=== PATIENT | female | born 1985 | race Caucasian/White ===

== ENCOUNTER 2023-03-14 09:45 | Day surgery (SDC) | payer OTHER ==
[2023-03-12 11:02] LABS: HEMATOCRIT 34.6 % (36.0-45.00); HEMOGLOBIN 10.6 g/dL (12.0-15.00); MEAN CELL VOLUME 71.2 fL (80.00-100.00); MEAN CORPUSCULAR HEMOGLOBIN 21.8 pg (27.00-32.0); MEAN CORPUSCULAR HGB CONC 30.6 g/dl (32.0-36.0); PLATELET COUNT 301 K/uL (150-450); RED BLOOD COUNT 4.86 M/uL (4.00-6.00); RED CELL DISTRIBUTION WIDTH 19.9 % (11.5-14.5)
[2023-03-12 11:38] LABS: INR 0.99; PARTIAL THROMBOPLASTIN TIME 27.1 SECONDS (22.0-34.0); PROTHROMBIN TIME 10.4 SECONDS (9.0-11.5)
== END 2023-03-14 19:30 | disposition home or self-care (01) ==
LOC: CIR.AMB 09:45
PROVIDERS: ATTEND Obstetrics & Gynecology
DX: D06.9 Carcinoma in situ of cervix, unspecified (principal); Z20.822 Contact with and (suspected) exposure to COVID-19; B97.7 Papillomavirus as the cause of diseases classified elsewhere

== ENCOUNTER 2025-02-11 09:15 | Inpatient (IN) | payer OTHER ==
[~2025-02-11] VITALS: Ht 154.9 cm; Wt 59.0 kg
[2025-02-11 10:33] VITALS: BP 112/72
[2025-02-11 11:21] LABS: URINE APPEARANCE Clear; URINE BILIRRUBIN Negative (NEGATIVE); URINE BLOOD Negative; URINE COLOR Yellow; URINE GLUCOSE Negative (NEGATIVE); URINE KETONE Negative (NEGATIVE); URINE LEUKOCYTE Trace; URINE NITRATE Negative; URINE PROTEIN Negative (NEGATIVE); URINE UROBILINOGEN 0.2 E.U./dl
[2025-02-11 11:24] LABS: BASO % 0.8 % (0.1-1.2); EOS # 0.07 (0.04-0.54); EOS % 1.1 % (0.7-7.0); LYMPH # 1.79 (1.18-3.74); LYMPH % 28.3 % (19.3-53.1); MEAN PLATELET VOLUME 10.60 fl (9.4-12.4); MONO # 0.41 (0.24-0.82); MONO % 6.5 % (4.7-12.5); NEUT # 3.99 (1.56-6.13); NEUT % 63.1 % (34.0-71.1); RED CELL DISTRIBUTION WIDTH 13.2 % (11.6-14.4)
[2025-02-11 11:27] LABS: URINE BACTERIA 259.1 uL (0.0-1933); URINE EPITHELIAL CELLS 20.2 uL (0.0-38.8); URINE RBC 13.7 uL (0.0-20.8); URINE WBC 10.4 uL (0.0-23.2)
[2025-02-11 11:32] LABS: URINE CAST 0.00 uL (0.0-1.40)
[2025-02-11 11:45] LABS: INR 1.05
[2025-02-11 11:47] LABS: ALT/SGPT 24.0 U/L (12-78); AST/SGOT 10.0 U/L (15-37); BILIRUBIN TOTAL 0.52 mg/dL (0.3-1.2); BUN CREA RATIO 13.0 (7.0-25.0); CREATININE SERUM 0.62 mg/dL (0.55-1.02); GFR 105.56; GLOBULINA 4.3 G/DL (2.4-3.5); GLUCOSE FASTING 97.0 mg/dL (65-100); OSMOLALITY SERUM 285.0 MOSM/KG (275-295)
[2025-02-18] MEDS ORDERED: POVIDONE-IODINE 118 ML BOTT TOP ONE (13:30)
[2025-02-18] MEDS ORDERED: CEFOXITIN SODIUM 2,000 MG VIAL IV ONE (13:30)
[2025-02-18] MEDS ORDERED: KETOROLAC TROMETHAMINE 60 MG VIAL IM STA (15:00)
[2025-02-18] MEDS ORDERED: RINGERS SOLUTION,LACTATED 1,000 ML IV SCH (15:00)
[2025-02-18] MEDS ORDERED: MORPHINE SULFATE 4 MG/ML CARTRIDGE IV PRN (15:15)
[2025-02-18] MEDS ORDERED: MORPHINE SULFATE 4 MG/ML VIAL IV ONE (15:30)
[2025-02-18 16:33] LABS: BASO % 0.3 % (0.1-1.2); EOS # 0.00 (0.04-0.54); EOS % 0.0 % (0.7-7.0); LYMPH # 1.26 (1.18-3.74); LYMPH % 7.7 % (19.3-53.1); MEAN PLATELET VOLUME 10.50 fl (9.4-12.4); MONO # 0.76 (0.24-0.82); MONO % 4.6 % (4.7-12.5); NEUT # 14.33 (1.56-6.13); NEUT % 87.0 % (34.0-71.1); RED CELL DISTRIBUTION WIDTH 13.3 % (11.6-14.4)
[2025-02-18 17:26] VITALS: BP 116/80
[2025-02-19] VITALS: BP 98/65
[2025-02-19 08:34] VITALS: BP 113/76
[2025-02-19] MEDS ORDERED: ACETAMINOPHEN WITH CODEINE 1 UDTAB TABLET PO SCH (09:00)
[2025-02-19] MEDS ORDERED: BISACODYL 10 MG/SUPP.RECT SUPP.RECT RECTAL STA (13:15)
[2025-02-19 16:00] VITALS: BP 109/73
[2025-02-19 20:00] VITALS: BP 98/65
[2025-02-20 02:31] VITALS: BP 103/65
[2025-02-20 05:30] VITALS: BP 113/75; O2SAT 100
[2025-02-20 06:30] VITALS: BP 106/70; O2SAT 100
[2025-02-20 07:59] LABS: BASO % 0.2 % (0.1-1.2); EOS # 0.03 (0.04-0.54); EOS % 0.3 % (0.7-7.0); LYMPH # 1.29 (1.18-3.74); LYMPH % 13.5 % (19.3-53.1); MEAN PLATELET VOLUME 11.40 fl (9.4-12.4); MONO # 0.83 (0.24-0.82); MONO % 8.7 % (4.7-12.5); NEUT # 7.36 (1.56-6.13); NEUT % 77.0 % (34.0-71.1); RED CELL DISTRIBUTION WIDTH 13.9 % (11.6-14.4)
[2025-02-20 08:12] VITALS: BP 108/75; O2SAT 100
[2025-02-20 12:59] VITALS: BP 105/69
[2025-02-20] MEDS ORDERED: CEFOXITIN SODIUM 2,000 MG VIAL IV SCH (13:00)
[2025-02-20 16:00] VITALS: BP 108/69; O2SAT 100
[2025-02-20] MEDS ORDERED: 0.9 % SODIUM CHLORIDE 1,000 ML IV SCH (17:30)
[2025-02-20] MEDS ORDERED: FAMOTIDINE/PF 20 MG in 0.9 % SODIUM CHLORIDE 100 ML IV SCH (21:00)
[2025-02-20 23:34] LABS: BASO % 0.2 % (0.1-1.2); EOS # 0.04 (0.04-0.54); EOS % 0.5 % (0.7-7.0); LYMPH # 1.62 (1.18-3.74); LYMPH % 19.2 % (19.3-53.1); MEAN PLATELET VOLUME 11.10 fl (9.4-12.4); MONO # 0.84 (0.24-0.82); MONO % 10.0 % (4.7-12.5); NEUT # 5.88 (1.56-6.13); NEUT % 69.7 % (34.0-71.1); RED CELL DISTRIBUTION WIDTH 13.9 % (11.6-14.4)
[2025-02-20 23:46] LABS: ALT/SGPT 13.0 U/L (12-78); AST/SGOT 17.0 U/L (15-37); BILIRUBIN TOTAL 0.84 mg/dL (0.3-1.2); BUN CREA RATIO 6.0 (7.0-25.0); CREATININE SERUM 0.72 mg/dL (0.55-1.02); GFR 88.83; GLOBULINA 2.8 G/DL (2.4-3.5); GLUCOSE FASTING 90.0 mg/dL (65-100); OSMOLALITY SERUM 278.0 MOSM/KG (275-295)
[2025-02-20 23:54] LABS: INR 1.02
[2025-02-21 00:59] VITALS: BP 92/61; O2SAT 97
[2025-02-21 08:45] VITALS: BP 111/79; O2SAT 100
[2025-02-21 14:48] VITALS: BP 112/74; O2SAT 97
[2025-02-21 15:20] LABS: BASO % 0.5 % (0.1-1.2); EOS # 0.12 (0.04-0.54); EOS % 1.5 % (0.7-7.0); LYMPH # 1.41 (1.18-3.74); LYMPH % 18.1 % (19.3-53.1); MEAN PLATELET VOLUME 11.10 fl (9.4-12.4); MONO # 0.77 (0.24-0.82); MONO % 9.9 % (4.7-12.5); NEUT # 5.41 (1.56-6.13); NEUT % 69.6 % (34.0-71.1); RED CELL DISTRIBUTION WIDTH 13.7 % (11.6-14.4)
[2025-02-21 15:53] LABS: BASO % 0.5 % (0.1-1.2); EOS # 0.04 (0.04-0.54); EOS % 0.5 % (0.7-7.0); LYMPH # 0.99 (1.18-3.74); LYMPH % 12.5 % (19.3-53.1); MEAN PLATELET VOLUME 11.00 fl (9.4-12.4); MONO # 0.62 (0.24-0.82); MONO % 7.8 % (4.7-12.5); NEUT # 6.19 (1.56-6.13); NEUT % 78.4 % (34.0-71.1); RED CELL DISTRIBUTION WIDTH 13.7 % (11.6-14.4)
[2025-02-21] MEDS ORDERED: ACETAMINOPHEN WITH CODEINE 1 UDTAB TABLET PO SCH (21:15)
[2025-02-22] VITALS: BP 99/63
[2025-02-22 05:00] VITALS: BP 113/77
[2025-02-22 08:48] VITALS: BP 121/81; O2SAT 100
[2025-02-22 15:48] VITALS: BP 107/69
[2025-02-23 00:15] VITALS: BP 104/71
[2025-02-23 08:12] VITALS: BP 128/84; O2SAT 100
[2025-02-23 09:38] LABS: BASO % 0.5 % (0.1-1.2); EOS # 0.26 (0.04-0.54); EOS % 2.8 % (0.7-7.0); LYMPH # 1.45 (1.18-3.74); LYMPH % 15.6 % (19.3-53.1); MEAN PLATELET VOLUME 10.20 fl (9.4-12.4); MONO # 0.76 (0.24-0.82); MONO % 8.2 % (4.7-12.5); NEUT # 6.73 (1.56-6.13); NEUT % 72.7 % (34.0-71.1); RED CELL DISTRIBUTION WIDTH 14.0 % (11.6-14.4)
[2025-02-23 13:05] VITALS: BP 124/80
[2025-02-23] MEDS ORDERED: MIDAZOLAM HCL 2 MG/2 ML VIAL IV PUSH ONE (17:00)
[2025-02-23] MEDS ORDERED: fentaNYL CITRATE 50 MCG/ML AMPUL IV PUSH ONE ×2 (17:00→17:30)
[2025-02-23 20:53] VITALS: BP 112/74
[2025-02-24 01:09] VITALS: BP 104/70
[2025-02-24 05:43] VITALS: BP 121/84
[2025-02-24 08:51] VITALS: BP 113/76
[2025-02-24] MEDS ORDERED: AMOXICILLIN/POTASSIUM CLAV 500 MG TABLET PO SCH (09:00)
[2025-02-24 16:58] VITALS: BP 115/73
[2025-02-25] VITALS: BP 119/77
[2025-02-25 09:21] VITALS: BP 120/79
[2025-02-25 17:54] VITALS: BP 128/80
[2025-02-25] MEDS ORDERED: LACTOBACILLUS ACIDOPHILUS 1 CAP CAP PO SCH (20:49)
[2025-02-26 00:53] VITALS: BP 108/73
[2025-02-26 06:54] LABS: BASO % 0.3 % (0.1-1.2); EOS # 0.25 (0.04-0.54); EOS % 2.6 % (0.7-7.0); LYMPH # 1.75 (1.18-3.74); LYMPH % 18.0 % (19.3-53.1); MEAN PLATELET VOLUME 10.00 fl (9.4-12.4); MONO # 0.82 (0.24-0.82); MONO % 8.5 % (4.7-12.5); NEUT # 6.81 (1.56-6.13); NEUT % 70.2 % (34.0-71.1); RED CELL DISTRIBUTION WIDTH 13.8 % (11.6-14.4)
[2025-02-26 07:34] LABS: ALT/SGPT 208.0 U/L (12-78); AST/SGOT 175.0 U/L (15-37); BILIRUBIN TOTAL 1.14 mg/dL (0.3-1.2); BUN CREA RATIO 17.0 (7.0-25.0); CREATININE SERUM 0.53 mg/dL (0.55-1.02); GFR 126.51; GLOBULINA 3.8 G/DL (2.4-3.5); GLUCOSE FASTING 83.0 mg/dL (65-100); OSMOLALITY SERUM 274.0 MOSM/KG (275-295)
[2025-02-26 08:00] VITALS: BP 120/78
[2025-02-26 20:04] VITALS: BP 120/82
[2025-02-27 00:46] VITALS: BP 115/74
[2025-02-27 04:30] VITALS: BP 118/78
[2025-02-27 08:00] VITALS: BP 121/84
[2025-02-27 18:59] VITALS: BP 122/81
[2025-02-28 00:12] VITALS: BP 115/73
[2025-02-28 04:30] VITALS: BP 112/75
[2025-02-28 08:00] VITALS: BP 116/77
[2025-02-28 17:21] VITALS: BP 127/80
[2025-03-01] VITALS: BP 110/77
[2025-03-01 07:24] LABS: ALT/SGPT 112.0 U/L (12-78); AST/SGOT 33.0 U/L (15-37); BILIRUBIN TOTAL 0.83 mg/dL (0.3-1.2); BUN CREA RATIO 17.0 (7.0-25.0); CREATININE SERUM 0.54 mg/dL (0.55-1.02); GFR 123.81; GLOBULINA 3.4 G/DL (2.4-3.5); GLUCOSE FASTING 89.0 mg/dL (65-100); OSMOLALITY SERUM 278.0 MOSM/KG (275-295)
[2025-03-01 07:26] LABS: BASO % 1.0 % (0.1-1.2); EOS # 0.26 (0.04-0.54); EOS % 3.1 % (0.7-7.0); LYMPH # 1.93 (1.18-3.74); LYMPH % 23.3 % (19.3-53.1); MEAN PLATELET VOLUME 9.60 fl (9.4-12.4); MONO # 0.61 (0.24-0.82); MONO % 7.4 % (4.7-12.5); NEUT # 5.37 (1.56-6.13); NEUT % 64.8 % (34.0-71.1); RED CELL DISTRIBUTION WIDTH 13.8 % (11.6-14.4)
[2025-03-01 07:30] LABS: ERYTHROCYTE SEDIMENTATION RATE 66 mm/hr (0-20)
[2025-03-01 08:00] VITALS: BP 113/73
[2025-03-01 16:47] VITALS: BP 113/66
[2025-03-02] VITALS: BP 106/65
[2025-03-02 09:29] VITALS: BP 123/75
[2025-03-02 16:56] VITALS: BP 116/78
[2025-03-02] MEDS ORDERED: CEFAZOLIN SODIUM 1,000 MG in 0.9 % SODIUM CHLORIDE 50 ML IV SCH (17:00)
[2025-03-03 00:24] VITALS: BP 121/79
[2025-03-03 03:57] VITALS: BP 118/67
[2025-03-03 08:54] VITALS: BP 124/81
[2025-03-03 16:00] VITALS: BP 110/77
[2025-03-03 20:00] VITALS: BP 108/76
[2025-03-04] VITALS: BP 106/70
[2025-03-04 05:30] VITALS: BP 140/70
[2025-03-04 07:54] VITALS: BP 107/73
[2025-03-04 13:10] VITALS: BP 112/68
[2025-03-05 02:12] VITALS: BP 120/75
[2025-03-05 06:40] VITALS: BP 107/70
[2025-03-05 07:31] LABS: BASO % 0.8 % (0.1-1.2); EOS # 0.18 (0.04-0.54); EOS % 2.2 % (0.7-7.0); LYMPH # 1.74 (1.18-3.74); LYMPH % 20.8 % (19.3-53.1); MEAN PLATELET VOLUME 9.90 fl (9.4-12.4); MONO # 0.62 (0.24-0.82); MONO % 7.4 % (4.7-12.5); NEUT # 5.73 (1.56-6.13); NEUT % 68.6 % (34.0-71.1); RED CELL DISTRIBUTION WIDTH 13.2 % (11.6-14.4)
[2025-03-05 08:00] LABS: BUN CREA RATIO 14.0 (7.0-25.0); CREATININE SERUM 0.42 mg/dL (0.55-1.02); GFR 165.46; GLUCOSE FASTING 86.0 mg/dL (65-100); OSMOLALITY SERUM 278.0 MOSM/KG (275-295)
[2025-03-05 08:27] VITALS: BP 115/74
[2025-03-05 16:33] VITALS: BP 114/78
[2025-03-05 19:00] VITALS: BP 115/65
[2025-03-06 01:42] VITALS: BP 117/77
[2025-03-06 06:08] VITALS: BP 114/78
[2025-03-06 08:48] VITALS: BP 106/71
[2025-03-06 15:26] VITALS: BP 116/76
[2025-03-06] MEDS ORDERED: CEFAZOLIN SODIUM 1,000 MG VIAL ONE (15:57)
== END 2025-03-06 18:38 | disposition home or self-care (01) | DRG 742 ==
LOC: SURH 02-18 07:00 → O/R 02-18 10:04 → OB/GYN 02-18 15:04
PROVIDERS: Internal Medicine; ADMIT Obstetrics & Gynecology; ATTEND Obstetrics & Gynecology
PROC: 0UT90ZZ Resection of Uterus, Open Approach (ICD-10-PCS; 2025-02-18)
PROC: 0UT70ZZ Resection of Bilateral Fallopian Tubes, Open Approach (ICD-10-PCS; principal; 2025-02-18 07:00)
PROC: 30233N1 Transfusion of Nonautologous Red Blood Cells into Peripheral Vein, Percutaneous Approach (ICD-10-PCS; 2025-02-20)
PROC: B42CZZZ Computerized Tomography (CT Scan) of Pelvic Arteries (ICD-10-PCS; 2025-02-20)
PROC: B42CYZZ Computerized Tomography (CT Scan) of Pelvic Arteries using Other Contrast (ICD-10-PCS; 2025-02-20)
PROC: 0W9F3ZZ Drainage of Abdominal Wall, Percutaneous Approach (ICD-10-PCS; 2025-02-23)
PROC: BW21YZZ Computerized Tomography (CT Scan) of Abdomen and Pelvis using Other Contrast (ICD-10-PCS; 2025-02-27)
DX: N72 Inflammatory disease of cervix uteri (principal); D62 Acute posthemorrhagic anemia; N99.840 Postprocedural hematoma of a genitourinary system organ or structure following a genitourinary system procedure; D25.1 Intramural leiomyoma of uterus; D25.2 Subserosal leiomyoma of uterus
CPT/HCPCS: 72191